=== PATIENT | male | born 1995 | race Caucasian/White ===

== ENCOUNTER 2020-11-21 21:48 | Emergency (ER) | payer SELFPAY ==
[~2020-11-21] VITALS: Ht 170.2 cm; Wt 74.8 kg
[2020-11-21 22:19] LABS: CLARITY,URINE CLOUDY (CLEAR); COLOR,URINE YELLOW (YELLOW)
[2020-11-21 22:20] LABS: KETONES,URINE NEGATIVE (NEGATIVE); LEUKOCYTE ESTERASE ,URINE NEGATIVE (NEGATIVE); NITRITE,URINE NEGATIVE (NEGATIVE); PROTEIN,URINE DIPSTICK NEGATIVE (NEGATIVE); URINE UROBILINOGEN 0.2 mg/dL (0.2 - 1)
[2020-11-21 22:27] LABS: BACTERIA,URINE MODERATE /HPF; RBC,URINE 0-5 /HPF (0-5); WBC,URINE (MAN) 0-5 /HPF (0-5)
[2020-11-21 22:28] LABS: AMORPHOUS SEDIMENT,URINE MANY (FEW); EPITHELIAL CELLS,URINE RARE /LPF
[2020-11-21] MEDS ORDERED: AUGMENTIN 875-1 EACH PO (23:08)
== END 2020-11-21 23:15 | disposition home or self-care (01) ==
LOC: ER 22:08
DX: R10.32 Left lower quadrant pain (principal); R31.9 Hematuria, unspecified
CPT/HCPCS: 81001; 87086; 99282